=== PATIENT | female | born 1970 | race Caucasian/White ===

== ENCOUNTER 2018-05-05 18:56 | Emergency (ER) | payer OTHER ==
[~2018-05-05] VITALS: Ht 165.1 cm; Wt 63.5 kg
[~2018-05-05 18:56] MED LIST: HYDR12.51 PO
[2018-05-05 19:15] VITALS: BP 147/91
--- NOTE | 2018-05-05 19:15 | NUR ---
PT ADMITS N/V SINCE 1330, HEADACHE AND DIZZINESS; SKIN IS INTACT, PINK/WARM/DRY; AAOX4, PERRL, UNEVEN GAIT D/T DIZZINESS; LUNGS CLEAR BL, BREATHING UNLABORED; HR EVEN AND REGULAR, BL PERIPHERAL PULSES PRESENT; BS ACTIVE X4, NO TENDERNESS TO PALPATION, NO HEPATOSPLENOMEGALLY PALPATED, RESONANT TO PERCUSSION; PT DENIES ANY FEVER, CP, SOB, OR COUGH AT THIS TIME; PT STATES 10/10 PAIN AT THIS TIME; VSS; PATIENT POSITIONED FOR COMFORT; HOB ELEVATED; BEDRAILS UP X2; BED DOWN.
--- NOTE | 2018-05-05 19:15 | NUR ---
PATIENT TO BED #8 VIA W/C
--- NOTE | 2018-05-05 19:15 | NUR ---
PT BROUGHT TO BED 8 FOR BEDSIDE TRIAGE BY RN. REPORT GIVEN TO DEVANG BARAJAS.
--- NOTE | 2018-05-05 19:34 | NUR ---
PT LAYING IN BED, LIGHTS DIMMNED, PT IS HOLDING HEAD, AND C/O HEADACHE THAT RADIATES FROM BACK OF HEAD TO EYES. PT STATES SHE TOOK TYLENOL EX AT 430 AND HER BP MEDS W/ NO RELIEF. PT IS AWAKE AND ALERT AND ACTING APPROPRIATE, PERRL.
[2018-05-05] MEDS ORDERED: KETOROLAC 30 MG/ML VIAL IVP ONE (20:15)
[2018-05-05] MEDS ORDERED: NACL 0.9% 1,000 ML IV ONE (20:15)
[2018-05-05] MEDS ORDERED: diphenhydrAMINE 50 MG/ML VIAL IVP ONE (20:15)
[2018-05-05] MEDS ORDERED: METOCLOPRAMIDE 10 MG/2 ML INJ VIAL IVP ONE (20:15)
[2018-05-05] MEDS ORDERED: DEXAMETHASONE 10 MG/ML VIAL IVP ONE (20:15)
[2018-05-05 20:44] LABS: APPEARANCE,URINE CLEAR (CLEAR); BILIRUBIN,URINE NEGATIVE (NEGATIVE); BLOOD, URINE NEGATIVE (NEGATIVE); COLOR,URINE YELLOW (YELLOW); LEUKOCYTE ESTERASE ,URINE NEGATIVE (NEGATIVE); NITRITE, URINE NEGATIVE (NEGATIVE); PH,URINE 6.5 (5.0-9.0); UGLUCOSE NEGATIVE (NEGATIVE)
--- NOTE | 2018-05-05 22:00 | NUR ---
PT RESTING IN BED, AT BEDSIDE, VSS.
--- NOTE | 2018-05-05 22:22 | NUR ---
AWAITING D/C PAPER WORK FROM DR FRIAS.
--- NOTE | 2018-05-05 22:52 | NUR ---
AWAITING D/C PAPER WORK FROM DR FRIAS.
--- NOTE | 2018-05-05 23:17 | NUR ---
AWAITING D/C PAPERWORK FROM DR FRIAS
[2018-05-05 23:35] VITALS: BP 114/77
--- NOTE | 2018-05-05 23:36 | NUR ---
Patient discharged with v/s stable. Written and verbal after care instructions given and explained. Patient alert, oriented and verbalized understanding of instructions. Wheel Chair Assisted with to car. All questions addressed prior to discharge. ID band removed. Patient advised to follow up with PMD. Rx of IBU, REGLAN, BENADRYL given. Patient educated on indication of medication including possible reaction and side effects. Opportunity to ask questions provided and answered.
== END 2018-05-05 23:36 | disposition home or self-care (01) ==
LOC: MED 18:56
DX: G43.909 Migraine, unspecified, not intractable, without status migrainosus (principal); I10 Essential (primary) hypertension; Z88.0 Allergy status to penicillin; Z90.49 Acquired absence of other specified parts of digestive tract
CPT/HCPCS: 81003; 96361; 96374; 96375; 99284; J1100; J1200; J1885; J2765

== ENCOUNTER 2018-05-30 00:17 | Emergency (ER) | payer OTHER ==
[~2018-05-30] VITALS: Ht 165.1 cm; Wt 77.1 kg
[2018-05-30 00:28] VITALS: BP 132/88
[2018-05-30 00:31] VITALS: BP 132/88
--- NOTE | 2018-05-30 00:31 | NUR ---
TO LOBBY A/W BED, AMBULATORY, VSS ERMD NOTED
--- NOTE | 2018-05-30 02:46 | NUR ---
PATIENT LEFT WITHOUT BEING SEEN BY DR. AMBROSE. NO FURTHER CARE PROVIDED FOR PATIENT.
== END 2018-05-30 02:45 | disposition left against medical advice (07) ==
LOC: MED 00:17
DX: K08.89 Other specified disorders of teeth and supporting structures (principal); Z53.21 Procedure and treatment not carried out due to patient leaving prior to being seen by health care provider

== ENCOUNTER 2018-07-20 18:42 | Emergency (ER) | payer OTHER ==
[~2018-07-20] VITALS: Ht 165.1 cm; Wt 82.1 kg
[2018-07-20 18:45] VITALS: BP 147/106
--- NOTE | 2018-07-20 19:01 | NUR ---
PT TO BED 1 VIA WHEELCHAIR
--- NOTE | 2018-07-20 19:02 | NUR ---
Notified er md jiang of patient's condition.
--- NOTE | 2018-07-20 19:15 | NUR ---
PT PRESENTED ER WITH C/O PAIN TO MIDSTERNAL/ UNDER LEFT RIB CHEST PAIN, SOB, NUMBNESS TO LEFT SIDE 2 FINGERS, AND RIGHT SIDE ABDOMINAL PAIN X 12 DAYS. PT STATED SHE HAS HAD N/N DENIES DIARRHEA. PT STATED SHE FAINTED TODAY. SHE IS NOT SURE SHE HIT HER HEAD OR HURT HER BODY. PT STATED SHE VOMITED BLOOD, DARK RED. RIGHT SIDE TENDER TO PALPATION. RASH UNDERNEATH BILATERAL BREASTS. RASH HAS SOME REDDNESS AND MINIMAL SWELLING. PT STATED SHE HAS PAIN AND NUMBESS TO LEGS BILATERAL. PT EYES PERRLA. BOWL SOUNDS ACTIVE 4Q. A/0 X 4. PT HAS ALLERGY TO PENICILLIN AND MEDICAL HX IS MIGRAINE, HTN, HIGH CHOLESTEROL. AT BEDSIDE.SKIN IS PINK/WARM/DRY; AAOX4. STEADY GAIT; HR EVEN AND REGULAR; PT DENIES ANY FEVER AT THIS TIME; PATIENT STATES PAIN OF 10/10 AT THIS TIME; VSS; PATIENT POSITIONED FOR COMFORT; HOB ELEVATED; BEDRAILS UP X2; BED DOWN. ER MD MADE AWARE OF PT STATUS.
[2018-07-20] MEDS ORDERED: KETOROLAC 60 MG/2 ML VIAL IM ONE (20:35)
--- NOTE | 2018-07-20 21:30 | NUR ---
PT RESTING IN BED, VITALS STABLE. COMFORT MEASURES OFFERED. PT TOLERATRED WELL.
[2018-07-20 21:45] VITALS: BP 118/82
--- NOTE | 2018-07-20 21:45 | NUR ---
Patient discharged with v/s stable. Written and verbal after care instructions given and explained. Patient alert, oriented and verbalized understanding of instructions. Ambulatory with steady gait. All questions addressed prior to discharge. ID band removed. Patient advised to follow up with PMD. Rx of Atarax, Motrin, and Zofran given. Patient educated on indication of medication including possible reaction and side effects. Opportunity to ask questions provided and answered.
== END 2018-07-20 21:45 | disposition home or self-care (01) ==
LOC: MED 18:42
DX: R00.2 Palpitations (principal); R51 Headache; R07.89 Other chest pain; R11.0 Nausea; I10 Essential (primary) hypertension; G43.909 Migraine, unspecified, not intractable, without status migrainosus; E78.5 Hyperlipidemia, unspecified; Z90.89 Acquired absence of other organs; Z88.0 Allergy status to penicillin; Z79.899 Other long term (current) drug therapy
CPT/HCPCS: 82948; 93005; 96372; 99283; J1885; 81002; 81025

== ENCOUNTER 2018-07-23 23:33 | Emergency (ER) | payer OTHER ==
[~2018-07-23] VITALS: Ht 165.1 cm; Wt 77.1 kg
--- NOTE | 2018-07-23 23:40 | NUR ---
Patient ambulated to bed 12 with family. RN evaluating patient at bedside.
[2018-07-23 23:45] VITALS: BP 130/83
--- NOTE | 2018-07-23 23:50 | NUR ---
PT C/O CP AND PALPITATIONS, NON RADIATING, 6/10 THROBBING. DENIES SOB, DIZZINESS, NO OTHER COMPLAINTS. SEEN HERE RECENTLY FOR SAME ISSUES, DX WITH PANIC ATTACKS. A/OX4, TIESHA, GCS 15. HX-- HTN, HYPERCHOLESTEROLEMIA MEDS--UNKNOWN
--- NOTE | 2018-07-24 00:04 | NUR ---
Dr. Cartagena evaluating patient at bedside.
[2018-07-24] MEDS ORDERED: KETOROLAC 30 MG/ML VIAL IM ONE (00:10)
[2018-07-24 00:13] LABS: BASOPHILS % (AUTO) 0.2 % (0.0-2.0); EOSINOPHILS # (AUTO) 0.1 K/uL (0-0.4); EOSINOPHILS % (AUTO) 0.8 % (0.0-4.0); HEMATOCRIT 44.1 % (36-48); HEMOGLOBIN 14.6 g/dL (12.0-16.0); LYMPHOCYTES # (AUTO) 3.4 K/uL (2.5-16.5); LYMPHOCYTES % (AUTO) 40.4 % (20.5-51.1); MEAN CORPUSCULAR HEMOGLOBIN 29 pg (27-31); MEAN CORPUSCULAR HGB CONC 33 g/dL (33-37); MONOCYTES # (AUTO) 0.5 K/uL (0.8-1.0); MONOCYTES % (AUTO) 5.5 % (1.7-9.3); NEUTROPHILS # (AUTO) 4.5 K/uL (1.8-7.7); NEUTROPHILS % (AUTO) 53.1 % (42.2-75.2); PLATELET COUNT (AUTO) 271 K/uL (140-450); RED BLOOD CELL COUNT(AUTO) 5.13 MIL/uL (4.20-5.40); RED CELL DISTRIBUTION WIDTH 14.2 % (11.6-13.7); WHITE BLOOD COUNT (AUTO) 8.5 K/uL (4.8-10.8)
[2018-07-24 00:41] LABS: ALBUMIN 3.7 g/dL (3.4-5.0); ANION GAP 10.8 (8-16); CARBON DIOXIDE 24.2 mmol/L (21-32); CREATININE 0.8 mg/dL (0.6-1.3); TOTAL BILIRUBIN 0.4 mg/dL (0.0-1.0)
[2018-07-24] MEDS ORDERED: KETOROLAC 15 MG/ML VIAL ONE (00:54)
[2018-07-24] MEDS ORDERED: POTASSIUM CHLORIDE 10 MEQ TABER PO ONE ×2 (01:05→01:13)
--- NOTE | 2018-07-24 01:20 | NUR ---
Patient discharged with v/s stable. Written and verbal after care instructions given and explained. Patient verbalized understanding. Ambulatory with steady gait. All questions addressed prior to discharge. Advised to follow up with PMD.
[2018-07-24 01:24] VITALS: BP 133/80
== END 2018-07-24 01:20 | disposition home or self-care (01) ==
LOC: MED 23:33
DX: E87.6 Hypokalemia (principal); F41.9 Anxiety disorder, unspecified; R00.2 Palpitations; R94.31 Abnormal electrocardiogram [ECG] [EKG]; G43.909 Migraine, unspecified, not intractable, without status migrainosus; E78.5 Hyperlipidemia, unspecified; Z88.0 Allergy status to penicillin; Z79.899 Other long term (current) drug therapy
CPT/HCPCS: 36415; 71045; 80053; 81025; 84484; 85025; 93005; 96372; 99284; J1885; Q0092; 99283

== ENCOUNTER 2018-08-06 15:22 | Emergency (ER) | payer OTHER ==
[~2018-08-06] VITALS: Ht 165.1 cm; Wt 65.3 kg
[2018-08-06 15:31] VITALS: BP 124/79
[2018-08-06] MEDS ORDERED: ALPRAZolam 0.5 MG TAB PO ONE (16:05)
[2018-08-06 16:59] LABS: BARBITURATE, URINE NEG. ng/ml (NEG <=200); BENZODIAZEPINE, URINE NEG. ng/mL (NEG <=200); CANNABINOID, URINE NEG. ng/mL (NEG <=50); COCAINE, URINE NEG. ng/mL (NEG <=300); OPIATE, URINE NEG. ng/mL (NEG <=2000); PHENCYCLIDINE SCREEN,URINE NEG. ng/mL (NEG <=25)
[2018-08-06 17:02] LABS: APPEARANCE,URINE CLEAR (CLEAR); BLOOD, URINE NEGATIVE (NEGATIVE); COLOR,URINE YELLOW (YELLOW); PH,URINE 6.5 (5.0-9.0); UGLUCOSE NEGATIVE (NEGATIVE)
[2018-08-06 17:03] LABS: BILIRUBIN,URINE NEGATIVE (NEGATIVE); LEUKOCYTE ESTERASE ,URINE NEGATIVE (NEGATIVE); NITRITE, URINE NEGATIVE (NEGATIVE)
[2018-08-06 17:06] VITALS: BP 124/79
== END 2018-08-06 17:07 | disposition home or self-care (01) ==
LOC: MED 15:22
DX: F41.0 Panic disorder [episodic paroxysmal anxiety] (principal); I10 Essential (primary) hypertension; Z88.0 Allergy status to penicillin; Z79.899 Other long term (current) drug therapy
CPT/HCPCS: 80305; 81003; 81025; 99284

== ENCOUNTER 2018-09-01 20:35 | Emergency (ER) | payer OTHER ==
[~2018-09-01] VITALS: Ht 165.1 cm; Wt 81.6 kg
[2018-09-01 20:38] VITALS: BP 147/84
--- NOTE | 2018-09-01 20:42 | NUR ---
PT TAKEN TO BED 3
--- NOTE | 2018-09-01 20:45 | NUR ---
48 Y/O F W/C/O "HEADACHE, CHEST PAIN/ANXIETY X TODAY." PT DENIES N/V/D; SKIN IS INTACT, PINK/WARM/DRY; AAOX4, PERRL, WITH EVEN AND STEADY GAIT; LUNGS CLEAR BL; HR EVEN AND REGULAR, BL PERIPHERAL PULSES PRESENT; BS ACTIVE X4, NO TENDERNESS TO PALPATION, NO HEPATOSPLENOMEGALLY PALPATED, RESONANT TO PERCUSSION; PT DENIES ANY FEVER, CP, SOB, OR COUGH AT THIS TIME; PT STATES 10/10 PAIN AT THIS TIME; VSS; PATIENT POSITIONED FOR COMFORT; HOB ELEVATED; BEDRAILS UP X2; BED DOWN. HX: HTN, HYPERLIPIDEMIA, ANXIETY ALLERGIES: PENICILLIN
--- NOTE | 2018-09-01 21:26 | NUR ---
Dr. Man evaluating patient at bedside.
[2018-09-01] MEDS ORDERED: DIAZEPAM 5 MG TAB PO ONE (21:40)
[2018-09-01] MEDS ORDERED: KETOROLAC 30 MG/ML VIAL IVP ONE (21:40)
[2018-09-01 21:58] LABS: BASOPHILS % (AUTO) 0.4 % (0.0-2.0); EOSINOPHILS # (AUTO) 0.1 K/uL (0-0.4); HEMATOCRIT 46.2 % (36-48); HEMOGLOBIN 15.4 g/dL (12.0-16.0); LYMPHOCYTES # (AUTO) 3.6 K/uL (2.5-16.5); LYMPHOCYTES % (AUTO) 39.3 % (20.5-51.1); MEAN CORPUSCULAR HEMOGLOBIN 29 pg (27-31); MEAN CORPUSCULAR HGB CONC 33 g/dL (33-37); MEAN CORPUSCULAR VOLUME 85.8 fL (80-94); MONOCYTES # (AUTO) 0.4 K/uL (0.8-1.0); MONOCYTES % (AUTO) 4.6 % (1.7-9.3); NEUTROPHILS % (AUTO) 54.7 % (42.2-75.2); PLATELET COUNT (AUTO) 265 K/uL (140-450); RED BLOOD CELL COUNT(AUTO) 5.38 MIL/uL (4.20-5.40); RED CELL DISTRIBUTION WIDTH 13.9 % (11.6-13.7); WHITE BLOOD COUNT (AUTO) 9.2 K/uL (4.8-10.8)
--- NOTE | 2018-09-01 22:02 | NUR ---
PT RETURN FROM CT
[2018-09-01 22:15] LABS: ALBUMIN 3.8 g/dL (3.4-5.0); ANION GAP 10.7 (8-16); CARBON DIOXIDE 26.5 mmol/L (21-32); CREATININE 0.7 mg/dL (0.6-1.3); POTASSIUM 3.2 mmol/L (3.5-5.1); TOTAL BILIRUBIN 0.4 mg/dL (0.0-1.0)
[2018-09-01 22:22] LABS: CREATINE KINASE MB 1.1 ng/mL (0-3.6)
--- NOTE | 2018-09-01 23:00 | NUR ---
PT RESTING COMFORTABLY IN BED WITH AND SON AT BEDSIDE.
[2018-09-01] MEDS ORDERED: fentaNYL 0.05 MG/ML VIAL IVP ONE (23:05)
[2018-09-01 23:46] VITALS: BP 126/84
--- NOTE | 2018-09-01 23:46 | NUR ---
Patient discharged with v/s stable. Written and verbal after care instructions given and explained. Patient alert, oriented and verbalized understanding of instructions. Ambulatory with steady gait. All questions addressed prior to discharge. ID band removed. Patient advised to follow up with PMD. Rx of VALIUM, NAPROSYN given. Patient educated on indication of medication including possible reaction and side effects. Opportunity to ask questions provided and answered.
== END 2018-09-01 23:46 | disposition home or self-care (01) ==
LOC: MED 20:35
DX: R51 Headache (principal); R07.9 Chest pain, unspecified; R11.2 Nausea with vomiting, unspecified; R00.2 Palpitations; I10 Essential (primary) hypertension; F41.9 Anxiety disorder, unspecified; E78.5 Hyperlipidemia, unspecified; F41.0 Panic disorder [episodic paroxysmal anxiety]; Z90.89 Acquired absence of other organs; Z88.0 Allergy status to penicillin; Z79.899 Other long term (current) drug therapy
CPT/HCPCS: 36415; 70450; 71045; 80053; 81025; 82550; 82553; 83690; 84484; 85025; 85379; 93005; 96374; 96375; 99284; J1885; J3010; Q0092

== ENCOUNTER 2018-10-11 11:19 | Emergency (ER) | payer OTHER ==
[~2018-10-11] VITALS: Ht 165.1 cm; Wt 81.6 kg
[2018-10-11 11:21] VITALS: BP 138/83
--- NOTE | 2018-10-11 11:24 | NUR ---
PT AMBULATES TO BED 11 Addendum: 10/11/18 at 1124 by MEDHT BED 3
--- NOTE | 2018-10-11 12:04 | NUR ---
PT C/O L SHOULDER, BACK AND NECK PAIN S/P CLEANING YESTERDAY AND HIT IT ON A DOOR. DENIES CP/SOB/NVD. NO OTHER COMPLAINTS 10 PAIN. DENIES N/V/D; SKIN IS PINK/WARM/DRY; AAOX4 WITH EVEN AND STEADY GAIT; LUNGS CLEAR BL; HR EVEN AND REGULAR; PT DENIES ANY FEVER, CP, SOB, OR COUGH AT THIS TIME; VSS; PATIENT POSITIONED FOR COMFORT; HOB ELEVATED; BEDRAILS UP X2; BED DOWN. ER MD MADE AWARE OF PT STATUS.
[2018-10-11] MEDS ORDERED: KETOROLAC 60 MG/2 ML VIAL IM ONE (12:15)
[2018-10-11] MEDS ORDERED: MORPHINE SULFATE 2 MG/ML SYR IM ONE (12:15)
--- NOTE | 2018-10-11 12:33 | NUR ---
CALLED PHARMACY MULTIPLE TIME WITH NO ANSWER REGARDING THE LACK OF MORPHINE ON UNIT. PER BETH MOSLEY SUPP PHARMACY IS AT [place] AND WILL STOCK WHEN THEY GET BACK. WILL FOLLOW UP AND GIVEN MEDICATION ORDERED WHEN THEY ARE ABLE TO STOCK.
--- NOTE | 2018-10-11 13:15 | NUR ---
NO STATED NEEDS AT THIS TIME.
[2018-10-11] MEDS ORDERED: MORPHINE SULFATE 4 MG/ML SYR ONE (13:47)
[2018-10-11 14:01] VITALS: BP 138/83
== END 2018-10-11 14:00 | disposition home or self-care (01) ==
LOC: MED 11:19
DX: S40.011A Contusion of right shoulder, initial encounter (principal); M75.01 Adhesive capsulitis of right shoulder; I10 Essential (primary) hypertension; Z90.49 Acquired absence of other specified parts of digestive tract; Z88.0 Allergy status to penicillin; Z79.899 Other long term (current) drug therapy; W22.8XXA Striking against or struck by other objects, initial encounter; Y93.89 Activity, other specified; Y92.89 Other specified places as the place of occurrence of the external cause; Y99.8 Other external cause status
CPT/HCPCS: 71046; 73030; 96372; 99283; J1885; J2270

== ENCOUNTER 2018-10-25 11:05 | Emergency (ER) | payer OTHER ==
[~2018-10-25] VITALS: Ht 165.1 cm; Wt 83.0 kg
[2018-10-25 11:15] VITALS: BP 142/78
--- NOTE | 2018-10-25 11:25 | NUR ---
PT. BIB W/ C/O OF LEFT SHOULDER PAIN. WAS SEEN IN ED IN SEPTEMBER FOR SAME PAIN. PT STATES IT GOT BETTER AND JUST RECENLTY STARTED GETTING WORSE AGAIN. PT TAKING MEDICATION THAT WAS PRESCRIBED AT THAT TIME, CANNOT REMEMBER THE NAME. 05/21 PAIN THAT IS SHARP AND NON RADIATING. WILL CONTINUE TO MONITOR. SAFETY PRECAUTIONS IN PLACE. ER MD MADE AWARE.
[2018-10-25] MEDS ORDERED: KETOROLAC 60 MG/2 ML VIAL IM ONE (12:15)
--- NOTE | 2018-10-25 12:56 | NUR ---
PT. STATES " I AM STILL IN PAIN " 05/21 PAIN IN SHOULDER. ER MD SAVAGE MADE AWARE.
[2018-10-25] MEDS ORDERED: MORPHINE SULFATE 4 MG/ML SYR IM ONE (13:00)
--- NOTE | 2018-10-25 13:39 | NUR ---
PT. PROVIDED WITH JUICE AND LEOBARDO CRACKERS AT THIS TIME.
[2018-10-25 14:25] VITALS: BP 130/82
--- NOTE | 2018-10-25 14:25 | NUR ---
Patient discharged with v/s stable. Written and verbal after care instructions given and explained. Patient alert, oriented and verbalized understanding of instructions. Ambulatory with steady gait. All questions addressed prior to discharge. ID band removed. Patient advised to follow up with PMD. Rx of MOTRIN 800MG, NORCO 5/325 given. Patient educated on indication of medication including possible reaction and side effects. Opportunity to ask questions provided and answered.
--- NOTE | 2018-10-25 14:25 | NUR ---
Note lizbeth in EDM - 10/25/18 at 1428 by LEXI Patient discharged with v/s stable. Written and verbal after care instructions given and explained. Patient alert, oriented and verbalized understanding of instructions. Ambulatory with steady gait. All questions addressed prior to discharge. ID band removed. Patient advised to follow up with PMD. Rx of MOTRIN 800MG given. Patient educated on indication of medication including possible reaction and side effects. Opportunity to ask questions provided and answered.
== END 2018-10-25 14:25 | disposition home or self-care (01) ==
LOC: MED 11:05
DX: M54.2 Cervicalgia (principal); M25.511 Pain in right shoulder; I10 Essential (primary) hypertension; Z90.49 Acquired absence of other specified parts of digestive tract; Z79.899 Other long term (current) drug therapy; Z88.0 Allergy status to penicillin
CPT/HCPCS: 96372; 99283; J1885; J2270

== ENCOUNTER 2019-04-19 21:54 | Emergency (ER) | payer OTHER ==
[~2019-04-19] VITALS: Ht 167.6 cm; Wt 79.4 kg
[2019-04-19 21:58] VITALS: BP 124/84
[2019-04-19] MEDS ORDERED: ATOR20TA PO (22:02)
--- NOTE | 2019-04-19 22:37 | NUR ---
PT TAKEN TO BED 2
[2019-04-19 22:40] VITALS: BP 124/84
--- NOTE | 2019-04-19 22:40 | NUR ---
49 Y/O F PRESENTED TO ED WITH C/O BILATERAL KNEE PAIN X 1 WEEK, WORSENING YESTERDAY. PT SELF-MEDICATED WITH TYLENOL AT 1899 AND IBUPROFEN AT 2044 WITH NO RELIEF. 8/10 PAIN, PER PT "FEELS LIKE SOMETHING IS EATING MY LEGS AND IT FOWLER" PAIN LOCATED BEHIND THE KNEE. NON-PITTING EDEMA NOTED BLE. PEDAL PULES PRESENT AND NORMAL. +CMS. ERMD NOTIFIED. WILL CONTINUE TO MONITOR.
[2019-04-19] MEDS ORDERED: HYDROcodone/APAP 5/325 MG 1 TAB TAB PO ONE (23:20)
[2019-04-19 23:35] LABS: BASOPHILS % (AUTO) 0.4 % (0.0-2.0); EOSINOPHILS # (AUTO) 0.1 K/uL (0-0.4); EOSINOPHILS % (AUTO) 1.2 % (0.0-4.0); HEMATOCRIT 44.6 % (36-48); HEMOGLOBIN 14.9 g/dL (12.0-16.0); LYMPHOCYTES # (AUTO) 3.9 K/uL (2.5-16.5); LYMPHOCYTES % (AUTO) 48.5 % (20.5-51.1); MEAN CORPUSCULAR HEMOGLOBIN 29 pg (27-31); MEAN CORPUSCULAR HGB CONC 34 g/dL (33-37); MEAN CORPUSCULAR VOLUME 85.9 fL (80-94); MONOCYTES # (AUTO) 0.3 K/uL (0.8-1.0); MONOCYTES % (AUTO) 3.8 % (1.7-9.3); NEUTROPHILS # (AUTO) 3.7 K/uL (1.8-7.7); NEUTROPHILS % (AUTO) 46.1 % (42.2-75.2); PLATELET COUNT (AUTO) 242 K/uL (140-450); RED BLOOD CELL COUNT(AUTO) 5.19 MIL/uL (4.20-5.40); RED CELL DISTRIBUTION WIDTH 14.1 % (11.6-13.7)
--- NOTE | 2019-04-19 23:41 | NUR ---
US AT BEDSIDE.
[2019-04-19 23:45] LABS: ANION GAP 13.9 (8-16); CARBON DIOXIDE 27.4 mmol/L (21-32); CREATININE 0.7 mg/dL (0.6-1.3); POTASSIUM 3.3 mmol/L (3.5-5.1)
[2019-04-19 23:50] LABS: ALBUMIN 3.6 g/dL (3.4-5.0); TOTAL BILIRUBIN 0.3 mg/dL (0.0-1.0)
--- NOTE | 2019-04-20 00:21 | NUR ---
Patient discharged with v/s stable. Written and verbal after care instructions given and explained. Patient alert, oriented and verbalized understanding of instructions. Ambulatory with steady gait. All questions addressed prior to discharge. ID band removed. Patient advised to follow up with PMD. Rx of Lasix given. Patient educated on indication of medication including possible reaction and side effects. Opportunity to ask questions provided and answered.
== END 2019-04-20 00:21 | disposition home or self-care (01) ==
LOC: MED 21:54
DX: R60.0 Localized edema (principal); E87.6 Hypokalemia; E78.5 Hyperlipidemia, unspecified; I10 Essential (primary) hypertension; Z90.49 Acquired absence of other specified parts of digestive tract; Z98.890 Other specified postprocedural states; Z79.899 Other long term (current) drug therapy; Z88.0 Allergy status to penicillin
CPT/HCPCS: 36415; 73562; 80053; 83880; 85025; 93970; 99284; Q0092

== ENCOUNTER 2019-06-19 13:47 | Emergency (ER) | payer OTHER ==
[~2019-06-19] VITALS: Ht 167.6 cm; Wt 84.4 kg
[~2019-06-19 13:47] MED LIST changes: +ATOR20TA PO
[2019-06-19 13:57] VITALS: BP 109/79
--- NOTE | 2019-06-19 14:39 | NUR ---
PT TO BED 8 WITH STEADY GAIT
[2019-06-19] MEDS: ASPIRIN 325 MG TAB PO ONE (15:16)
[2019-06-19] MEDS: LORazepam 1 MG TAB PO ONE (15:17)
--- NOTE | 2019-06-19 15:24 | NUR ---
HEART PALPATATION X 3 DAYS. POKING FEELINGS IN CHEST. PINS AND NEEDLE FEELINGS RUNNING DOWN L LEG AND NUMBNESS IN LEFT HAND FINGERTIPS. DENIES DIZZINESS OR HEADACHE. NO SOB. SKIN WARM, DRY, APPROPRIATE COLOR. NAD AT THIS TIME. VSS. DENIES DRUG OR ALCOHOL ABUSE PMH- HTN, HIGH CHOLESTEROL, ANXIETY HYDROCHLORIZIDE
[2019-06-19 15:34] LABS: BASOPHILS # (AUTO) 0.1 K/uL (0.00-0.22); BASOPHILS % (AUTO) 0.9 % (0.0-2.0); EOSINOPHILS # (AUTO) 0.1 K/uL (0-0.4); EOSINOPHILS % (AUTO) 1.4 % (0.0-4.0); HEMATOCRIT 45.8 % (36-48); HEMOGLOBIN 15.5 g/dL (12.0-16.0); LYMPHOCYTES # (AUTO) 2.5 K/uL (2.5-16.5); LYMPHOCYTES % (AUTO) 29.3 % (20.5-51.1); MEAN CORPUSCULAR HEMOGLOBIN 29 pg (27-31); MEAN CORPUSCULAR HGB CONC 34 g/dL (33-37); MONOCYTES # (AUTO) 0.5 K/uL (0.8-1.0); MONOCYTES % (AUTO) 5.8 % (1.7-9.3); NEUTROPHILS # (AUTO) 5.3 K/uL (1.8-7.7); NEUTROPHILS % (AUTO) 62.6 % (42.2-75.2); PLATELET COUNT (AUTO) 245 K/uL (140-450); RED BLOOD CELL COUNT(AUTO) 5.26 MIL/uL (4.20-5.40); RED CELL DISTRIBUTION WIDTH 14.9 % (11.6-13.7); WHITE BLOOD COUNT (AUTO) 8.4 K/uL (4.8-10.8)
[2019-06-19 15:48] LABS: ANION GAP 13.9 (8-16); CARBON DIOXIDE 25.6 mmol/L (21-32); CREATININE 0.6 mg/dL (0.6-1.3); POTASSIUM 4.5 mmol/L (3.5-5.1)
[2019-06-19 15:54] LABS: ALBUMIN 3.7 g/dL (3.4-5.0); TOTAL BILIRUBIN 0.3 mg/dL (0.0-1.0)
--- NOTE | 2019-06-19 16:14 | NUR ---
PT RESTING IN BED, NO S/S DISTRESS.
[2019-06-19 16:41] VITALS: BP 120/81
== END 2019-06-19 16:40 | disposition home or self-care (01) ==
LOC: MED 13:47
DX: R00.2 Palpitations (principal); I10 Essential (primary) hypertension; E78.5 Hyperlipidemia, unspecified; F41.9 Anxiety disorder, unspecified; Z90.49 Acquired absence of other specified parts of digestive tract; Z88.0 Allergy status to penicillin; Z79.899 Other long term (current) drug therapy
CPT/HCPCS: 36415; 71045; 80053; 81025; 82550; 82553; 82948; 83690; 84484; 85025; 99284; Q0092; 93005

== ENCOUNTER 2019-09-17 20:05 | Emergency (ER) | payer OTHER ==
[~2019-09-17] VITALS: Ht 165.1 cm; Wt 81.6 kg
[2019-09-17 20:25] VITALS: BP 139/78
--- NOTE | 2019-09-17 20:27 | NUR ---
TO LOBBY A/W BED VIA WHEELCHAIR
--- NOTE | 2019-09-17 21:38 | NUR ---
PATIENT SITTING IN LOBBY WITH . REPORTS NO NEW NEEDS OR CONCERNS. XRAY COMPLETED.
--- NOTE | 2019-09-17 22:10 | NUR ---
PT BROUGHT TO BED 10 VIA WHEELCHAIR WITH SPOUSE
--- NOTE | 2019-09-17 22:30 | NUR ---
ICE PACK PLACED ON BACK OF PATIENT TO HELP WITH PAIN.
[2019-09-17] MEDS ORDERED: KETOROLAC 30 MG/ML VIAL IM ONE (23:40)
[2019-09-17] MEDS ORDERED: CYCLOBENZAPRINE 10 MG TAB PO ONE (23:40)
[2019-09-18] MEDS ORDERED: HYDROcodone/APAP 5/325 MG 1 TAB TAB PO ONE (00:50)
[2019-09-18 00:58] VITALS: BP 130/76
--- NOTE | 2019-09-18 00:58 | NUR ---
Patient discharged with v/s stable. Written and verbal after care instructions ABOUT ADULT BACK PAIN given and explained. Patient alert, oriented and verbalized understanding of instructions. Wheel Chair Assisted with to car. All questions addressed prior to discharge. ID band removed. Patient advised to follow up with PMD. Rx of NORCO given. Patient educated on indication of medication including possible reaction and side effects. Opportunity to ask questions provided and answered. PATIENT HAD DRIVE HER HOME.
== END 2019-09-18 00:58 | disposition home or self-care (01) ==
LOC: MED 20:05
DX: M54.5 Low back pain (principal); M53.3 Sacrococcygeal disorders, not elsewhere classified; I10 Essential (primary) hypertension; E78.5 Hyperlipidemia, unspecified; Z79.899 Other long term (current) drug therapy; Z88.0 Allergy status to penicillin
CPT/HCPCS: 72110; 96372; 99283; J1885

== ENCOUNTER 2021-01-18 12:45 | Emergency (ER) | payer OTHER ==
[~2021-01-18] VITALS: Ht 167.6 cm; Wt 87.3 kg
[2021-01-18 12:54] VITALS: BP 121/93
--- NOTE | 2021-01-18 13:00 | NUR ---
TO ED 12 AMBULATORY FROM TRIAGE. PROVIDED URINE CUP FOR SAMPLE. CARE ENDORSED TO KARL PINEDA.
--- NOTE | 2021-01-18 13:04 | NUR ---
CK MCDONOUGH AT BEDSIDE
--- NOTE | 2021-01-18 13:05 | NUR ---
50 Y/O FEMALE REFERRED FROM URGENT CARE, C/O GENERALIZED ABDOMINAL PAIN X2 MONTHS. PT STATES SHE HAS BEEN NAUSEOUS + VOMITING X2 MONTHS AND NOT ABLE TO KEEP ANY FOOD DOWN. PT WENT TO PCP AND IS WAITING FOR A SPECIALIST. PT DENIES N/V/D/C RIGHT NOW. DENIES FEVER/CHILLS. PT STATES SHE FEELS VERY BLOATED. ABD IS ROUND, SOFT, AND TENDER WITH ACTIVE BOWEL SOUNDS X4 QUADS. PT RATES PAIN 8/10 THAT IS PRESSURE LIKE AND IS ALL OVER ABD. PT DENIES TAKING ANYTHING FOR PAIN. PT IS A/O X4 WITH EVEN AND UNLABORED RESPIRATIONS. PT LAYING IN BED WITH BED IN LOWEST POSITION, BRAKES LOCKED, X1 SIDERAIL UP. PT PUT IN GOWN. PMH: POLYCYTHEMIA, HTN, HLD, OVARIAN CYSTS ALLERGIES: PCN
[2021-01-18] MEDS ORDERED: KETOROLAC 30 MG/ML VIAL IVP ONE (13:10)
[2021-01-18] MEDS ORDERED: NACL 0.9% 1,000 ML IV ONE (13:10)
--- NOTE | 2021-01-18 13:26 | NUR ---
IV ESTABLISHED, MEDICATED ORDERED.
[2021-01-18 13:27] LABS: BASOPHILS % (AUTO) 0.7 % (0.0-2.0); EOSINOPHILS # (AUTO) 0.1 K/uL (0-0.4); HEMATOCRIT 42.6 % (36-48); HEMOGLOBIN 14.2 g/dL (12.0-16.0); LYMPHOCYTES # (AUTO) 2.9 K/uL (2.5-16.5); LYMPHOCYTES % (AUTO) 44.9 % (20.5-51.1); MEAN CORPUSCULAR HEMOGLOBIN 29 pg (27-31); MEAN CORPUSCULAR HGB CONC 33 g/dL (33-37); MEAN CORPUSCULAR VOLUME 87.6 fL (80-94); MONOCYTES # (AUTO) 0.4 K/uL (0.8-1.0); MONOCYTES % (AUTO) 5.9 % (1.7-9.3); NEUTROPHILS # (AUTO) 3.1 K/uL (1.8-7.7); NEUTROPHILS % (AUTO) 47.5 % (42.2-75.2); PLATELET COUNT (AUTO) 247 K/uL (140-450); RED BLOOD CELL COUNT(AUTO) 4.86 MIL/uL (4.20-5.40); RED CELL DISTRIBUTION WIDTH 13.7 % (11.6-13.7); WHITE BLOOD COUNT (AUTO) 6.6 K/uL (4.8-10.8)
[2021-01-18 13:48] LABS: ALBUMIN 3.8 g/dL (3.4-5.0); ANION GAP 8.7 (8-16); CARBON DIOXIDE 27.2 mmol/L (21-32); CREATININE 0.6 mg/dL (0.6-1.3); POTASSIUM 3.9 mmol/L (3.5-5.1); TOTAL BILIRUBIN 0.6 mg/dL (0.0-1.0)
--- NOTE | 2021-01-18 13:52 | NUR ---
DR CANO AT BEDSIDE
--- NOTE | 2021-01-18 14:53 | NUR ---
US AT BEDSIDE
[2021-01-18] MEDS ORDERED: ONDA4TAB PO (16:01)
[2021-01-18] MEDS ORDERED: ACET-8386 PO (16:01)
[2021-01-18 16:22] VITALS: BP 121/93
--- NOTE | 2021-01-18 16:23 | NUR ---
Patient discharged with v/s stable. Written and verbal after care instructions given and explained. Patient alert, oriented and verbalized understanding of instructions. Ambulatory with steady gait. All questions addressed prior to discharge. ID band removed. Patient advised to follow up with PMD. Rx of hydrocodone/acetaminophen 5-325 and ondansetron hcl given. Patient educated on indication of medication including possible reaction and side effects. Opportunity to ask questions provided and answered.
== END 2021-01-18 16:23 | disposition home or self-care (01) ==
LOC: MED 12:45
DX: R10.2 Pelvic and perineal pain (principal); I11.9 Hypertensive heart disease without heart failure; E78.00 Pure hypercholesterolemia, unspecified; Z88.0 Allergy status to penicillin; Z79.899 Other long term (current) drug therapy; Z90.49 Acquired absence of other specified parts of digestive tract
CPT/HCPCS: 36415; 74176; 76856; 80053; 81002; 81025; 83690; 85025; 87491; 93976; 96361; 96374; 99285; J1885; J7030

== ENCOUNTER 2021-01-25 16:52 | Emergency (ER) | payer OTHER ==
[~2021-01-25] VITALS: Ht 167.6 cm; Wt 86.2 kg
[~2021-01-25 16:52] MED LIST changes: +ACET-8386 PO; +ONDA4TAB PO
[2021-01-25 17:09] VITALS: BP 118/70
[2021-01-25 18:12] LABS: BASOPHILS % (AUTO) 0.5 % (0.0-2.0); EOSINOPHILS # (AUTO) 0.1 K/uL (0-0.4); EOSINOPHILS % (AUTO) 1.3 % (0.0-4.0); HEMATOCRIT 45.5 % (36-48); HEMOGLOBIN 15.1 g/dL (12.0-16.0); LYMPHOCYTES # (AUTO) 3.3 K/uL (2.5-16.5); LYMPHOCYTES % (AUTO) 46.5 % (20.5-51.1); MEAN CORPUSCULAR HEMOGLOBIN 29 pg (27-31); MEAN CORPUSCULAR HGB CONC 33 g/dL (33-37); MEAN CORPUSCULAR VOLUME 88.4 fL (80-94); MONOCYTES # (AUTO) 0.4 K/uL (0.8-1.0); MONOCYTES % (AUTO) 5.2 % (1.7-9.3); NEUTROPHILS # (AUTO) 3.3 K/uL (1.8-7.7); NEUTROPHILS % (AUTO) 46.5 % (42.2-75.2); PLATELET COUNT (AUTO) 288 K/uL (140-450); RED BLOOD CELL COUNT(AUTO) 5.15 MIL/uL (4.20-5.40); RED CELL DISTRIBUTION WIDTH 13.8 % (11.6-13.7)
--- NOTE | 2021-01-25 18:12 | NUR ---
C/O 05/21 RIGHT CALF PAIN & SWELLING X 3 DAYS. LEFT ARM PAIN & LEFT HAND NUMBNESS AT THIS TIME. PMH: BLOOD CANCER, HTN, HLD, FIBROID,APPENDECTOMY, C SECTION
[2021-01-25 18:23] LABS: ALBUMIN 4.2 g/dL (3.4-5.0); ANION GAP 11.5 (8-16); CARBON DIOXIDE 25.4 mmol/L (21-32); CREATININE 0.6 mg/dL (0.6-1.3); POTASSIUM 3.9 mmol/L (3.5-5.1); TOTAL BILIRUBIN 0.4 mg/dL (0.0-1.0)
--- NOTE | 2021-01-25 18:48 | NUR ---
PT W/C ASSISTED TO BED 12.
[2021-01-25] MEDS ORDERED: KETOROLAC 30 MG/ML VIAL IM ONE (19:10)
--- NOTE | 2021-01-25 19:30 | NUR ---
RECEIVED REPORT FROM MIRIAM BARAJAS FOR CONTINUITY OF CARE.
[2021-01-25] MEDS ORDERED: NAPR-54 PO ×2 (20:02→20:25)
[2021-01-25 20:28] VITALS: BP 118/70
--- NOTE | 2021-01-25 20:28 | NUR ---
Patient discharged with v/s stable. PAIN IS AT A 3/10 WHICH WAS TOLERABLE FOR PATIENT. Written and verbal after care instructions given and explained. Patient alert, oriented and verbalized understanding of instructions. Ambulatory with steady gait. All questions addressed prior to discharge. ID band removed. Patient advised to follow up with PMD. Rx of NAPROXEN given. Patient educated on indication of medication including possible reaction and side effects. Opportunity to ask questions provided and answered.
== END 2021-01-25 20:28 | disposition home or self-care (01) ==
LOC: MED 16:52
DX: M79.10 Myalgia, unspecified site (principal); M79.604 Pain in right leg; I10 Essential (primary) hypertension; Z88.0 Allergy status to penicillin; Z79.899 Other long term (current) drug therapy
CPT/HCPCS: 36415; 80053; 85025; 93971; 96372; 99284; J1885

== ENCOUNTER 2021-08-24 14:16 | Emergency (ER) | payer OTHER ==
[~2021-08-24] VITALS: Ht 167.6 cm; Wt 87.1 kg
[~2021-08-24 14:16] MED LIST changes: +NAPR-54 PO
[2021-08-24 14:26] VITALS: BP 203/153
[2021-08-24] MEDS ORDERED: MORPHINE SULFATE 4 MG/ML SYR IVP ONE (14:45)
[2021-08-24] MEDS ORDERED: ONDANSETRON 4 MG/2 ML VIAL IVP ONE (14:45)
[2021-08-24] MEDS ORDERED: NACL 0.9% 1,000 ML IV ONE (14:45)
--- NOTE | 2021-08-24 15:00 | NUR ---
51 y/o female was walking down the stairs at 1200 this afternooon and tripped and states she fell and twisted both of her ankles and hit the wall prior to landing on the floor. c/o pain 10/10 tpo bilateral wrists, bilateral ankles (w/ right ankle swelling), right shoulder and right posterior ribs. Pt does not have neck or back pain, remembers the entire event. - bruising or deformities, - cp, - sob, - dizziness. pt was brought to the bed via wheelchair and assisted to the bed via stand/pivot. pt sitting in bed semi fowlers, rails up x2, bed in lowest position. Hx: appendix removal, high cholesterol, HTN All: PCN
--- NOTE | 2021-08-24 15:10 | NUR ---
pt taken to xray
--- NOTE | 2021-08-24 15:54 | NUR ---
PT RETURNED FROM XRAY
[2021-08-24] MEDS ORDERED: MORPHINE SULFATE 4 MG/ML SYR ONE (16:07)
[2021-08-24] MEDS ORDERED: ONDANSETRON 4 MG/2 ML VIAL ONE (16:08)
[2021-08-24] MEDS ORDERED: CYCLOBENZAPRINE 10 MG TAB PO ONE (16:35)
[2021-08-24] MEDS ORDERED: ACET-8386 PO (16:52)
[2021-08-24] MEDS ORDERED: IBUP-2213 PO (16:52)
[2021-08-24] MEDS ORDERED: CYCL-711 PO (16:52)
[2021-08-24] MEDS ORDERED: LIDOCAINE 5% 1 EA PATCH TP ONE (16:54)
[2021-08-24] MEDS ORDERED: LIDOCAINE 5% 1 EA PATCH TP SCH (17:00)
--- NOTE | 2021-08-24 17:28 | NUR ---
PER ERMD BOTH OF PT ANKLES WERE SPLINTED AND PMCS WAS ASSESSED BEFORE AND AFTER ALL WNL. PT RIGHT ARM WAS PLACE INTO A SLING. ERMD ASSESSED SPLINT AND APPROVED.
[2021-08-24 17:58] VITALS: BP 150/77
--- NOTE | 2021-08-24 17:58 | NUR ---
Patient discharged with v/s stable. Written and verbal after care instructions given and explained. Patient alert, oriented and verbalized understanding of instructions. Wheel Chair Assisted with to car. All questions addressed prior to discharge. ID band removed. Patient advised to follow up with PMD. Rx of HYDROCODONE/ACETAMINOPHEN, FLEXERIL, AND IBUPROFEN given. Patient educated on indication of medication including possible reaction and side effects. Opportunity to ask questions provided and answered.
[2021-08-25] MEDS ORDERED: LIDOCAINE 5% 1 EA PATCH TP SCH (09:00)
== END 2021-08-24 17:58 | disposition home or self-care (01) ==
LOC: MED 14:16
DX: S93.401A Sprain of unspecified ligament of right ankle, initial encounter (principal); S93.402A Sprain of unspecified ligament of left ankle, initial encounter; S43.401A Unspecified sprain of right shoulder joint, initial encounter; S33.5XXA Sprain of ligaments of lumbar spine, initial encounter; R00.0 Tachycardia, unspecified; I10 Essential (primary) hypertension; E78.5 Hyperlipidemia, unspecified; Z90.49 Acquired absence of other specified parts of digestive tract; Z79.899 Other long term (current) drug therapy; Z79.1 Long term (current) use of non-steroidal anti-inflammatories (NSAID); Z79.891 Long term (current) use of opiate analgesic; Z88.0 Allergy status to penicillin; W20.8XXA Other cause of strike by thrown, projected or falling object, initial encounter; Y93.89 Activity, other specified; Y92.89 Other specified places as the place of occurrence of the external cause; Y99.8 Other external cause status
CPT/HCPCS: 29515; 72100; 73030; 73090; 73552; 73610; 73620; 96361; 96374; 96375; 99284; J2270; J2405; J7030; Q0092

== ENCOUNTER 2022-10-07 11:52 | Emergency (ER) | payer OTHER ==
[~2022-10-07] VITALS: Ht 163.8 cm; Wt 89.8 kg
[~2022-10-07 11:52] MED LIST changes: -ACET-8386 PO; +ACET-8905 PO; +CYCL-711 PO; +IBUP-2213 PO
[2022-10-07 12:15] VITALS: BP 134/80
--- NOTE | 2022-10-07 12:20 | NUR ---
52 y/o female, c/o cough, sore throat, jordan, body aches, and congestion for 1 week, pt states her tested positive for covid 10 days ago and her and her duaghter tested positive for covid with at home test today. 4/10 body pain. pmh: denies allergy: penicillin med: nyquil, dayquil, cough syrup
[2022-10-07] MEDS ORDERED: IBUP-2213 PO (12:36)
[2022-10-07 12:48] VITALS: BP 134/80
== END 2022-10-07 12:48 | disposition home or self-care (01) ==
LOC: MED 11:52
DX: U07.1 COVID-19 (principal); I10 Essential (primary) hypertension; E78.5 Hyperlipidemia, unspecified; Z79.899 Other long term (current) drug therapy; Z90.49 Acquired absence of other specified parts of digestive tract
CPT/HCPCS: 99282

== ENCOUNTER 2023-01-29 08:19 | Emergency (ER) | payer OTHER ==
[~2023-01-29] VITALS: Ht 165.1 cm; Wt 87.5 kg
[2023-01-29 08:37] VITALS: BP 117/82
[2023-01-29] MEDS ORDERED: ONDANSETRON 4 MG/2 ML VIAL IVP ONE (10:15)
[2023-01-29] MEDS ORDERED: NACL 0.9% 1,000 ML IV ONE (10:15)
[2023-01-29] MEDS ORDERED: MORPHINE SULFATE 4 MG/ML SYR IVP ONE (10:15)
--- NOTE | 2023-01-29 10:23 | NUR ---
blood drawn and sent to lab
[2023-01-29 10:39] LABS: APPEARANCE,URINE CLEAR (CLEAR); BILIRUBIN,URINE NEGATIVE (NEGATIVE); BLOOD, URINE NEGATIVE (NEGATIVE); COLOR,URINE YELLOW (YELLOW); LEUKOCYTE ESTERASE ,URINE NEGATIVE (NEGATIVE); NITRITE, URINE NEGATIVE (NEGATIVE); PH,URINE 5.5 (5.0-9.0); UGLUCOSE NEGATIVE (NEGATIVE)
[2023-01-29 10:54] LABS: BASOPHILS # (AUTO) 0.1 K/uL (0.00-0.22); BASOPHILS % (AUTO) 0.9 % (0.0-2.0); EOSINOPHILS # (AUTO) 0.1 K/uL (0-0.4); EOSINOPHILS % (AUTO) 2.4 % (0.0-4.0); HEMATOCRIT 44.9 % (36-48); LYMPHOCYTES # (AUTO) 2.8 K/uL (2.5-16.5); LYMPHOCYTES % (AUTO) 48.6 % (20.5-51.1); MEAN CORPUSCULAR HEMOGLOBIN 28 pg (27-31); MEAN CORPUSCULAR HGB CONC 34 g/dL (33-37); MEAN CORPUSCULAR VOLUME 82.1 fL (80-94); MONOCYTES # (AUTO) 0.4 K/uL (0.8-1.0); MONOCYTES % (AUTO) 6.5 % (1.7-9.3); NEUTROPHILS # (AUTO) 2.4 K/uL (1.8-7.7); NEUTROPHILS % (AUTO) 41.6 % (42.2-75.2); PLATELET COUNT (AUTO) 219 K/uL (140-450); RED BLOOD CELL COUNT(AUTO) 5.47 MIL/uL (4.20-5.40); RED CELL DISTRIBUTION WIDTH 14.9 % (11.6-13.7); WHITE BLOOD COUNT (AUTO) 5.7 K/uL (4.8-10.8)
[2023-01-29 11:14] LABS: ALBUMIN 3.5 g/dL (3.4-5.0); ANION GAP 10.3 (8-16); CARBON DIOXIDE 28.4 mmol/L (21-32); CREATININE 0.6 mg/dL (0.6-1.3); POTASSIUM 3.7 mmol/L (3.5-5.1); TOTAL BILIRUBIN 0.5 mg/dL (0.0-1.0)
[2023-01-29] MEDS ORDERED: IBUP-2213 PO (11:55)
[2023-01-29] MEDS ORDERED: LIDO1ADH47 TP (11:55)
[2023-01-29] MEDS ORDERED: TRAM50TA3 PO (11:55)
--- NOTE | 2023-01-29 12:00 | NUR ---
FLU AND COVID SWAB COLLECTED AND SENT TO LAB
[2023-01-29] MEDS ORDERED: KETOROLAC 60 MG/2 ML VIAL IM ONE (12:20)
--- NOTE | 2023-01-29 12:36 | NUR ---
Patient discharged with v/s stable. Written and verbal after care instructions given and explained. Patient alert, oriented and verbalized understanding of instructions. Ambulatory with steady gait. All questions addressed prior to discharge. ID band removed. Patient advised to follow up with PMD. Rx of LIDOCAINE, IBUPROFEN, TORADOL given. Patient educated on indication of medication including possible reaction and side effects. Opportunity to ask questions provided and answered.
== END 2023-01-29 12:33 | disposition home or self-care (01) ==
LOC: MED 08:19
DX: R10.32 Left lower quadrant pain (principal); Z20.822 Contact with and (suspected) exposure to COVID-19; I10 Essential (primary) hypertension; Z79.899 Other long term (current) drug therapy; Z79.891 Long term (current) use of opiate analgesic; Z79.1 Long term (current) use of non-steroidal anti-inflammatories (NSAID); Z88.0 Allergy status to penicillin
CPT/HCPCS: 36415; 74176; 80053; 81003; 81025; 85025; 87086; 87426; 87804; 96361; 96372; 96374; 96375; 99285; J1885; J2270; J2405; J7030

== ENCOUNTER 2023-06-22 07:58 | Emergency (ER) | payer OTHER ==
[~2023-06-22] VITALS: Ht 160 cm; Wt 83.5 kg
[~2023-06-22 07:58] MED LIST changes: +LIDO1ADH47 TP; +TRAM50TA3 PO
[2023-06-22 08:01] VITALS: BP 116/70; PULSE 86; RESP 20; TEMP 98.5; O2SAT 98
[2023-06-22 08:23] VITALS: O2SAT 98
[2023-06-22] MEDS ORDERED: MORPHINE SULFATE 4 MG/ML SYR IVP ONE (08:55)
[2023-06-22] MEDS ORDERED: ONDANSETRON 4 MG/2 ML VIAL IVP ONE (08:55)
[2023-06-22] MEDS: NACL 0.9% 1,000 ML IV SCH ×2 (09:00→10:15)
[2023-06-22 09:29] LABS: BASOPHILS % (AUTO) 0.7 % (0.0-2.0); EOSINOPHILS # (AUTO) 0.1 K/uL (0-0.4); EOSINOPHILS % (AUTO) 1.2 % (0.0-4.0); HEMATOCRIT 45.4 % (36-48); HEMOGLOBIN 15.1 g/dL (12.0-16.0); LYMPHOCYTES # (AUTO) 3.3 K/uL (2.5-16.5); MEAN CORPUSCULAR HEMOGLOBIN 28 pg (27-31); MEAN CORPUSCULAR HGB CONC 33 g/dL (33-37); MONOCYTES # (AUTO) 0.3 K/uL (0.8-1.0); MONOCYTES % (AUTO) 4.2 % (1.7-9.3); NEUTROPHILS # (AUTO) 2.4 K/uL (1.8-7.7); NEUTROPHILS % (AUTO) 39.9 % (42.2-75.2); PLATELET COUNT (AUTO) 181 K/uL (140-450); RED CELL DISTRIBUTION WIDTH 16.4 % (11.6-13.7); WHITE BLOOD COUNT (AUTO) 6.1 K/uL (4.8-10.8)
[2023-06-22 09:34] LABS: APPEARANCE,URINE CLEAR (CLEAR); BILIRUBIN,URINE NEGATIVE (NEGATIVE); BLOOD, URINE 2+ (NEGATIVE); COLOR,URINE YELLOW (YELLOW); LEUKOCYTE ESTERASE ,URINE TRACE (NEGATIVE); NITRITE, URINE POSITIVE (NEGATIVE); PH,URINE 5.5 (5.0-9.0); PROTEIN,URINE 2+ (NEGATIVE); UGLUCOSE NEGATIVE (NEGATIVE); UROBILINOGEN,URINE 0.2 EU/dL (0.2 - 1)
[2023-06-22 09:48] LABS: BACTERIA,URINE >30 (MANY) /HPF (None Seen); MUCUS,URINE None Seen /LPF (None Seen); RBC,URINE >20 (MANY) /HPF (0-5); SQUAMOUS EPITHELIAL CELL,UR 0-3 (FEW) /LPF (0-3 (FEW)); TRICHOMONAS,URINE None Seen /HPF (None Seen); WHITE BLOOD CELL CASTS,URINE None Seen /LPF (None Seen); YEAST,URINE None Seen /HPF (None Seen)
[2023-06-22] MEDS ORDERED: KETOROLAC 30 MG/ML VIAL IVP ONE (09:55)
[2023-06-22 10:04] LABS: ALBUMIN 3.4 g/dL (3.4-5.0); ANION GAP 14.5 (8-16); CALCIUM 8.3 mg/dL (8.5-10.1); CARBON DIOXIDE 23.8 mmol/L (21-32); CREATININE 0.7 mg/dL (0.6-1.3); POTASSIUM 3.3 mmol/L (3.5-5.1); TOTAL BILIRUBIN 0.5 mg/dL (0.0-1.0); TOTAL PROTEIN, SERUM 6.4 g/dL (6.4-8.2)
[2023-06-22 10:23] VITALS: O2SAT 98
[2023-06-22] MEDS ORDERED: IBUP-2213 PO (10:23)
[2023-06-22] MEDS ORDERED: ONDA8TAB87 PO (10:23)
[2023-06-22] MEDS ORDERED: CIPR500T4 PO (10:23)
[2023-06-22] MEDS ORDERED: ACET-8905 PO (10:23)
[2023-06-22 11:01] VITALS: BP 114/68; PULSE 84; RESP 18; TEMP 98.2; O2SAT 98
== END 2023-06-22 11:01 | disposition home or self-care (01) ==
LOC: MED 07:58
DX: N39.0 Urinary tract infection, site not specified (principal); R10.30 Lower abdominal pain, unspecified; M54.9 Dorsalgia, unspecified; R11.2 Nausea with vomiting, unspecified; I10 Essential (primary) hypertension; Z79.899 Other long term (current) drug therapy; Z90.49 Acquired absence of other specified parts of digestive tract; Z98.890 Other specified postprocedural states; Z88.0 Allergy status to penicillin
CPT/HCPCS: 36415; 74176; 80053; 81001; 81025; 83690; 85025; 87086; 96361; 96374; 96375; 99285; J1885; J2270; J2405; J7030